=== PATIENT | female | born 1995 | race Caucasian/White ===

== ENCOUNTER → 2016-09-14 | Outpatient (CLI) | payer OTHER ==
--- NOTE | 2016-09-14 14:26 | DIAGNOSTIC IMAGING REPORT ---
ULTRASOUND OF THE THYROID GLAND CLINICAL HISTORY: Nontoxic thyroid nodule. COMPARISON STUDY: No priors. TECHNIQUE: Real-time, grayscale, and color flow sonography of the thyroid gland is performed utilizing a high-frequency linear transducer. Images are reviewed in the transverse and longitudinal planes. FINDINGS: Right lobe: The right lobe of the thyroid gland is normal in size and homogeneous in echotexture, measuring 6.1 x 2.3 x 3.5 cm. There is a minimally complex cystic lesion in the right lobe measuring 4.4 x 2.1 x 3.0 cm. No internal flow is seen on color imaging. Left lobe: The left lobe of the thyroid gland is normal in size and homogeneous in echotexture, measuring 5.0 x 1.6 x 1.6 cm. There are 2 subcentimeter colloid nodules identified in the left lobe. Isthmus: The thyroid isthmus is normal in appearance and measures 0.3 cm in AP diameter. IMPRESSION: 1. A 4.4 cm minimally complex cyst is identified in the right thyroid lobe. Although this is of low suspicion, fine-needle aspiration is recommended based on the large size. 2. Subcentimeter colloid nodules are noted in the left lobe. Electronically signed by: Hilario Black M.D. 09/14/2016 2:24 PM Dictated Date/Time: 09/14/2016 2:22 PM
== END | disposition home or self-care (01) ==
LOC: C.ULTR 12:50
PROVIDERS: ATTEND Internal Medicine Endocrinology, Diabetes & Metabolism
DX: E04.1 Nontoxic single thyroid nodule (principal)

== ENCOUNTER → 2016-09-25 | Outpatient (CLI) | payer OTHER ==
--- NOTE | 2016-09-25 11:54 | DIAGNOSTIC IMAGING REPORT ---
Ultrasound guided fine-needle aspiration, drainage GUIDANCE NEEDLE PLACEMENT CLINICAL HISTORY: THYROID NODULE thyroid cyst TECHNIQUE: Ultrasound guided thyroid fine-needle aspiration/drainage COMPARISON STUDY: None FINDINGS: Following description of procedure and informed consent, 2 passes with a 22-gauge needle were made to the cystic density of the right thyroid. 15 cc of dark fluid was removed. There is minimal, if any residual. There were no complications. Fluid was transmitted to pathology for evaluation purposes. IMPRESSION: Right thyroid aspiration/drainage with no significant residual. No complications. Pathology is pending. Electronically signed by: Shayne Griffith M.D. 09/25/2016 11:53 AM Dictated Date/Time: 09/25/2016 11:51 AM
== END | disposition home or self-care (01) ==
LOC: C.ULTR 10:41
PROVIDERS: ATTEND Internal Medicine Endocrinology, Diabetes & Metabolism
DX: E04.1 Nontoxic single thyroid nodule (principal)